=== PATIENT | female | born 1950 | race American Indian/Alaskan Native ===

== ENCOUNTER 2020-06-15 06:57 | Day surgery (SDC) | payer MEDICARE ==
[2020-06-15 07:49] LABS: Basophils # (Auto) 0.1 K/mm3 (0.0-0.1); Basophils % (Auto) 0.9 % (0.0-1.8); Eosinophils # (Auto) 0.1 K/mm3 (0.0-0.4); Eosinophils % (Auto) 1.2 % (0.0-4.3); Hemoglobin 13.5 gm/dl (10.1-14.3); Lymphocytes # (Auto) 1.9 K/mm3 (1.2-5.4); Lymphocytes % (Auto) 27.2 % (13.4-35.0); Mean Corpuscular HGB Conc 33 % (30-34); Mean Corpuscular Volume 82 fl (79-97); Monocytes # (Auto) 0.6 K/mm3 (0.0-0.8); Monocytes % (Auto) 7.9 % (0.0-7.3); Platelet Count 215 K/mm3 (140-440); Red Blood Count 5.01 M/mm3 (3.65-5.03); Red Cell Distribution Width 15.2 % (13.2-15.2)
[2020-06-15] MEDS ORDERED: HEPARIN/NS 5000 UNIT/500ML 1,000 ML IR ONE (08:00)
[2020-06-15] MEDS ORDERED: MIDAZOLAM 2 MG/2 ML INJ ONE (08:00)
[2020-06-15] MEDS ORDERED: fentaNYL 100 MCG/2 ML INJ ONE (08:01)
[2020-06-15 08:05] LABS: INR 1.01 (0.87-1.13)
[2020-06-15 08:30] LABS: Blood Urea Nitrogen 11 mg/dL (7-17); Calcium 9.8 mg/dL (8.4-10.2); Hemolysis Index 0
[2020-06-15 08:31] LABS: BUN/Creatinine Ratio 18
[2020-06-15] MEDS: SODIUM CHLORIDE 0.9% 500 ML 500 ML IV SCH ×2 (08:37→09:07)
[2020-06-15] MEDS: LIDOCAINE (2%) 20 MG/1 ML VIAL 20 ML MDV INFILTRATI ONE ×2 (09:05→09:09)
[2020-06-15] MEDS: HEPARIN 10,000 UNITS/10 ML VIAL ONE ×2 (09:06→09:11)
[2020-06-15] MEDS: NITROGLYCERIN SYRINGE 3 ML ONE ×2 (09:07→09:11)
[2020-06-15] MEDS: VERAPAMIL 5 MG/2 ML INJ ONE ×2 (09:07→09:11)
--- NOTE | 2020-06-15 09:47 | Cardiac Catherization Report ---
REFERRING PHYSICIAN: Devyn Duncan MD INDICATION FOR PROCEDURE: The patient is a pleasant 69-year-old female with left ventricular hypertrophy, normal stress test, some shortness of breath. She is referred here by Dr. Duncan for left heart catheterization. She did have a nuclear stress test last week, which was negative for ischemia. Risks, benefits, alternatives discussed at length prior to obtaining informed consent. PROCEDURE IN DETAIL: The patient was brought to the catheterization lab in a postabsorptive state, prepped and draped in sterile fashion. Duy's test in right hand was normal. A 2 mL of 2% lidocaine used to anesthetize the right wrist. A standard 6-Anguillan hydrophilic sheath used to cannulate the right radial artery via modified Seldinger technique. All exchanges performed to exchange a J-tip guidewire. JL3.5 catheter used to engage the left main. No dampening or ventricularization. Cineangiography performed in multiple projections. JR4 catheter used to cross the aortic valve under fluoroscopic guidance. PVC is intentionally provoked and pressures and rhythms are obtained. Next, catheter manual pullback performed with continuous pressure monitoring. Catheter used to engage the right coronary. No dampening or ventricularization. Cineangiography performed in multiple projections. The catheter was removed from the body of wire, sheath removed. Manual pressure was used to achieve hemostasis. I directly supervised the administration of moderate sedation from 9:00 a.m. to 9:25 a.m. There were no immediate complications. DATA: Aortic pressure is 110/50, LV pressure is 110, LVEDP of 7 mmHg. Left ventriculography reveals normal systolic performance with estimated ejection fraction of 60-65%. No evidence of aortic stenosis. PVC: There is no evidence of post-PVC Brockenbrough phenomenon. Notes no significant change in gradient. No evidence of intracavitary gradient. CORONARY ANATOMY: Right dominant system. [id number] diffuse calcification is noted. Left main without significant disease, bifurcates left anterior descending and left circumflex. LAD is a moderate-sized vessel, courses anterior intergroove, wraps around the apex. There is mild calcium in the proximal LAD with a maximal narrowing of 25%, JASON 3 flow throughout diagonal without significant disease. Left circumflex, courses the medial aspect to lateral wall. No significant disease. Right coronary is a moderate-sized vessel, courses AV groove. Mild calcium is noted. Scattered luminal irregularities, but no significant disease identified. CONCLUSIONS: 1. Mild nonobstructive coronary artery disease with mildly calcified coronary tree with 25% proximal LAD stenosis. No obstructive disease identified in this right dominant system. 2. Normal left ventricular systolic performance, estimated ejection fraction of 60-65%. 3. Normal LVEDP. 4. No evidence of intracavitary gradient. No evidence of post-PVC Brockenbrough phenomenon. The patient is now clinically stable. Standard radial care. Results of the procedure were explained at length to the patient and her daughter via telephone. Continue with good blood pressure control. Follow up with Dr. Duncan in the office. JOB# [id number] SBM/NTS
--- NOTE | 2020-06-15 09:48 | Short Stay Summary ---
Short Stay Documentation Date of service: 06/15/20 - History H&P: obtained from office - Allergies and Medications Current Medications: Allergies Penicillins Allergy (Verified 06/15/20 07:23) Anaphylaxis Home Medications Medication Instructions Recorded Confirmed Last Taken Type Aspirin EC [Halfprin EC] 81 mg PO DAILY 06/15/20 06/15/20 06/15/20 05:15 History 81 mg AtorvaSTATin [Lipitor] 40 mg PO QHS 06/15/20 06/15/20 06/14/20 18:00 History 40 mg Furosemide [Lasix TAB] 20 mg PO DAILY 06/15/20 06/15/20 06/15/20 05:15 History 20 mg Gabapentin [Neurontin] 600 mg PO TID 06/15/20 06/15/20 06/14/20 History 600 mg Potassium Chloride [K-Dur] 20 meq PO DAILY 06/15/20 06/15/20 06/15/20 05:15 History 20 meq Semaglutide [Ozempic] 1 mg SQ QWEEK 06/15/20 06/15/20 06/11/20 History 1 mg Telmisartan [Micardis] 80 mg PO DAILY 06/15/20 06/15/20 06/15/20 05:15 History 80 mg amLODIPine 10 mg PO DAILY 06/15/20 06/15/20 06/15/20 05:15 History 10 mg carvediloL [Coreg] 6.25 mg PO BID 06/15/20 06/15/20 06/15/20 05:15 History cloNIDine-TTS PATCH 0.2 mg TRANSDERMA QWEEK 06/15/20 06/15/20 06/12/20 History 0.2mg glipiZIDE XL [Glucotrol Xl] 10 mg PO BID 06/15/20 06/15/20 06/14/20 History 10 mg hydrALAZINE [Apresoline TAB] 25 mg PO DAILY 06/15/20 06/15/20 06/15/20 05:15 History 25 mg Active Medications Sodium Chloride (Nacl 0.9% 500 Ml) 500 mls @ 50 mls/hr IV DIRECT JUSTEN Stop: 06/15/20 17:59 Last Admin: 06/15/20 09:07 Dose: 50 mls/hr Documented by: - Brief post op/procedure progress note Date of procedure: 06/15/20 Pre-op diagnosis: chest pain Post-op diagnosis: other (mild CAD) Procedure: LHC - see dictated cath report Anesthesia: local Estimated blood loss: none Condition: stable - Disposition Condition at discharge: Good Disposition: DC-01 TO HOME OR SELFCARE - Discharge Diagnoses (1) Mild CAD Status: Chronic Short Stay Discharge Plan Follow up with: RIANNA ALONZO MD [Primary Care Provider] - 7 Days
[2020-06-15 13:10] VITALS: BP 145/76
== END 2020-06-15 14:26 | disposition home or self-care (01) ==
LOC: CATHLABREC 06:57
PROVIDERS: ATTEND Internal Medicine
DX: R06.02 Shortness of breath (principal); I25.10 Atherosclerotic heart disease of native coronary artery without angina pectoris; I11.0 Hypertensive heart disease with heart failure; I50.30 Unspecified diastolic (congestive) heart failure; I42.9 Cardiomyopathy, unspecified; E11.51 Type 2 diabetes mellitus with diabetic peripheral angiopathy without gangrene; M19.90 Unspecified osteoarthritis, unspecified site; M48.061 Spinal stenosis, lumbar region without neurogenic claudication; Z72.89 Other problems related to lifestyle; Z88.0 Allergy status to penicillin; Z79.899 Other long term (current) drug therapy; Z79.82 Long term (current) use of aspirin; Z87.891 Personal history of nicotine dependence; Z98.890 Other specified postprocedural states
CPT/HCPCS: 36415; 80048; 85025; 85610; 85730; 93005; 93458; 99156; 99157; C1887; C1894; J1644; J2250; J3010; J7040; Q9967

== ENCOUNTER 2020-11-23 08:55 | Observation (INO) | payer MEDICARE ==
[2020-11-23 09:39] LABS: Basophils % (Auto) 0.5 % (0.0-1.8); Eosinophils # (Auto) 0.2 K/mm3 (0.0-0.4); Eosinophils % (Auto) 3.2 % (0.0-4.3); Hematocrit 38.5 % (30.3-42.9); Hemoglobin 13.1 gm/dl (10.1-14.3); Lymphocytes # (Auto) 2.4 K/mm3 (1.2-5.4); Lymphocytes % (Auto) 34.6 % (13.4-35.0); Mean Corpuscular HGB Conc 34 % (30-34); Mean Corpuscular Volume 82 fl (79-97); Monocytes # (Auto) 0.7 K/mm3 (0.0-0.8); Monocytes % (Auto) 10.2 % (0.0-7.3); Platelet Count 199 K/mm3 (140-440); Red Blood Count 4.71 M/mm3 (3.65-5.03); Red Cell Distribution Width 15.6 % (13.2-15.2)
[2020-11-23] MEDS ORDERED: VANCOMYCIN 1,250 MG in SODIUM CHLORIDE 0.9% 250ML 250 ML IV SCH (10:00)
[2020-11-23] MEDS ORDERED: VANCOMYCIN/NS 1 GM/250 ML 1 GM/250 ML BAG IV NR (10:00)
[2020-11-23] MEDS ORDERED: SODIUM CHLORIDE 0.45% 1000 ML 1,000 ML IV SCH (10:00)
[2020-11-23 10:08] LABS: Partial Thromboplastin Time 32.4 Sec. (24.2-36.6)
[2020-11-23 10:10] LABS: Blood Urea Nitrogen 12 mg/dL (7-17); Calcium 9.8 mg/dL (8.4-10.2); Hemolysis Index 213
[2020-11-23 10:14] LABS: BUN/Creatinine Ratio 17
--- NOTE | 2020-11-23 10:15 | Anesthesia Day of Surgery ---
Anesthesia Day of Surgery - Day of Surgery Patient Examined: Yes Patient H&P Reviewed: Yes Patient is NPO: Yes
--- NOTE | 2020-11-23 10:17 | Short Stay Summary ---
Short Stay Documentation Date of service: 11/23/20 - History H&P: obtained from office - Allergies and Medications Current Medications: Allergies Penicillins Allergy (Severe, Verified 11/23/20 09:18) Anaphylaxis fluconazole [From Diflucan] Allergy (Verified 11/23/20 09:18) Anaphylaxis Home Medications Medication Instructions Recorded Confirmed Last Taken Type Aspirin EC [Halfprin EC] 81 mg PO DAILY 06/15/20 11/23/20 11/22/20 History 81 mg AtorvaSTATin [Lipitor] 40 mg PO QHS 06/15/20 11/23/20 11/22/20 History 40 mg Furosemide [Lasix TAB] 20 mg PO DAILY 06/15/20 11/23/20 11/22/20 History 20 mg Gabapentin [Neurontin] 600 mg PO TID 06/15/20 11/23/20 11/22/20 History 600 mg Potassium Chloride [K-Dur] 20 meq PO DAILY 06/15/20 11/23/20 11/22/20 History 20 meq Semaglutide [Ozempic] 1 mg SQ QWEEK 06/15/20 11/23/20 11/15/20 History 1 mg amLODIPine 10 mg PO DAILY 06/15/20 11/23/20 11/22/20 History 10 mg carvediloL [Coreg] 12.5 mg PO BID 06/15/20 11/23/20 11/22/20 History 12.5mg cloNIDine-TTS PATCH 0.2 mg TRANSDERMA QWEEK 06/15/20 11/23/20 11/15/20 History 0.2mg/day glipiZIDE XL [Glucotrol Xl] 10 mg PO BID 06/15/20 11/23/20 11/22/20 History 10 mg hydrALAZINE [Apresoline TAB] 25 mg PO DAILY 06/15/20 11/23/20 11/22/20 History 25 mg Active Medications Sodium Chloride 1,000 ml/ (Vancomycin HCl 1,000 mg) 0 ml IR INTRAOP ONE Stop: 11/23/20 11:01 Sodium Chloride (Nacl 0.45% 1000 Ml) 1,000 mls @ 50 mls/hr IV DIRECT JUSTEN Vancomycin HCl 1,250 mg/ (Sodium Chloride) 275 mls @ 166.667 mls/hr IV PREOP JUSTEN Stop: 11/23/20 15:00 - Physical exam Integumentary: other (Surgical site to left anterior chest wall. Pressure dressing removed, Telfa Tegaderm in place, no bleeding or hematoma noted.) - Brief post op/procedure progress note Date of procedure: 11/23/20 Pre-op diagnosis: Hypertrophic cardiomyopathy Post-op diagnosis: same Procedure: ICD implantation see dictated op report Anesthesia: local Estimated blood loss: none Condition: stable - Disposition Condition at discharge: Good Disposition: DC-01 TO HOME OR SELFCARE - Discharge Diagnoses (1) Hypertrophic cardiomyopathy Status: Acute Short Stay Discharge Plan Activity: advance as tolerated Diet: low fat, low cholesterol, low salt Wound: open to air, keep clean and dry, per your surgeon's advice Additional Instructions: Discharge instructions reviewed with patient. Postoperative CXR reviewed shows no pneumothorax. Device interrogation shows normal post implant function Follow up with: PRIMARY CAREMD [Primary Care Provider] - 7 Days RIANNA DUNCAN MD [Staff Physician] - 7 Days (Patient should follow-up with [facility] device clinic on 12/05/2020 at our [place] office on 12/05/2020 at 8:30 AM. #[phone] Patient should follow-up with Dr. William Duncan, [facility] in our [place] office on 12/29/2020 at 11:30 AM. #[phone] )
--- NOTE | 2020-11-23 10:19 | Anesthesia Consultation ---
Anesthesia Consult and Med Hx Date of service: 11/23/20 - Airway Anesthetic Teeth Evaluation: Good ROM Head & Neck: Adequate Mental/Hyoid Distance: Adequate Mallampati Class: Class IV Intubation Access Assessment: Possibly Difficult - Pre-Operative Health Status ASA Pre-Surgery Classification: ASA3 Proposed Anesthetic Plan: MAC (GA if needed) - Pulmonary Hx Smoking: Yes Hx Asthma: Yes (Chemical asthma) Hx Respiratory Symptoms: Yes (YA on stairs) - Cardiovascular System Hx Hypertension: Yes (Hypertrophic CM) Hx Coronary Artery Disease: No (CHF/LVH) Hx Cardia Arrhythmia: Yes (SVT) Hx Peripheral Vascular Disease: Yes - Central Nervous System Hx Back Pain: Yes Hx Psychiatric Problems: No - Gastrointestinal Hx Gastroesophageal Reflux Disease: No - Endocrine Hx Non-Insulin Dependent Diabetes: Yes - Hematic Hx Sickle Cell Disease: No - Other Systems Hx Cancer: No Hx Obesity: No
[2020-11-23] MEDS ORDERED: SODIUM CHLORIDE IRRI 1000 ML 1,000 ML, .VANCOMYCIN VIAL 1,000 MG IR ONE (11:00)
[2020-11-23] MEDS ORDERED: MIDAZOLAM 2 MG/2 ML INJ ONE (11:13)
[2020-11-23] MEDS ORDERED: HYDROmorphone 1 MG/1 ML INJ ONE (11:13)
[2020-11-23] MEDS ORDERED: propofoL 200 MG/20 ML VIAL IV ONE ×4 (11:14)
[2020-11-23] MEDS ORDERED: SODIUM CHLORIDE IRRI 500 ML 500 ML IR ONE (11:36)
[2020-11-23] MEDS: BUPIVACAINE/PF (0.5%) 5 MG/1 ML 30 ML VIAL INFILTRATI ONE ×3 (11:56→11:59)
[2020-11-23] MEDS: LIDOCAINE (1%) 10 MG/1 ML VIAL 20 ML MDV ONE ×3 (11:56→11:59)
[2020-11-23] MEDS ORDERED: .VANCOMYCIN VIAL 1,000 MG in SODIUM CHLORIDE IRRI 1000 ML 1,000 ML IRRIGATION ONE (12:43)
--- NOTE | 2020-11-23 14:43 | XRay Report ---
CHEST 1 VIEW INDICATION: Pacemaker Postop. COMPARISON: None FINDINGS: Support devices: 2-lead pacemaker device appears in good position. Heart: Within normal limits. Lungs/Pleura: No acute air space or interstitial disease. Additional findings: None. IMPRESSION: No acute findings. Signer Name: Nitin Chapman Jr, MD Signed: 11/23/2020 2:29 PM Workstation Name: [id number]
--- NOTE | 2020-11-23 17:10 | Post Anesthesia Evaluation ---
- Post Anesthesia Evaluation Patient Participated: Yes Airway Patent: Yes Stable Respiratory Function: Yes Nausea/Vomiting: No Temp > 96.8F: Yes Pain Manageable: Yes Adequeate Hydration: Yes Anesthesia Complications: Yes Block Receding Appropriately: Not Applicable Patient on Ventilator: No
[2020-11-23] MEDS: HYDROcodone/ACETAMINOPHEN 5-325 MG TAB PO PRN (19:26)
[2020-11-23] MEDS ORDERED: VANCOMYCIN/NS 1 GM/250 ML 1 GM/250 ML BAG IV SCH (23:00)
[2020-11-24] MEDS: HYDROcodone/ACETAMINOPHEN 5-325 MG TAB PO PRN ×3 (01:53→14:02)
[2020-11-24] MEDS ORDERED: SODIUM POLYSTYRENE 15 GM/60 ML ORAL LIQD PO SCH (09:00)
[2020-11-24 09:29] VITALS: BP 168/72
--- NOTE | 2020-11-24 19:37 | Electrocardiograph Report ---
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
--- NOTE | 2020-11-24 19:41 | Electrocardiograph Report ---
[facility] Test Date: 2020-11-23 Test Time: 14:31:42 Pat Name: EMILIANO ROLLE Department: 32 Room: 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
== END 2020-11-24 15:18 | disposition home or self-care (01) ==
LOC: CATHLABREC 08:55 → 4A 13:23
PROVIDERS: ADMIT Internal Medicine Cardiovascular Disease; ATTEND Internal Medicine Cardiovascular Disease
DX: I42.2 Other hypertrophic cardiomyopathy (principal); I42.8 Other cardiomyopathies; Z79.82 Long term (current) use of aspirin; Z79.899 Other long term (current) drug therapy; Z98.890 Other specified postprocedural states; Z95.810 Presence of automatic (implantable) cardiac defibrillator
CPT/HCPCS: 33249; 36415; 71045; 80048; 82962; 85025; 85610; 85730; 93005; 96365; 96366; C1721; C1777; C1892; C1898; G0378; J1170; J2250; J2704; J3370; J7030; J7050; Q9967